=== PATIENT | male | born 1945 | race Caucasian/White ===

== ENCOUNTER 2016-08-11 19:16 | Emergency (ER) | payer MEDICARE, BC, OTHER ==
[2016-08-11] MEDS ORDERED: IOPAMIDOL 370 (76%) 100 ML VIAL IV ONE (19:17)
[2016-08-11] MEDS ORDERED: DIPHENHYDRAMINE HCL 50 MG/1 ML VIAL ONE (19:44)
[2016-08-11] MEDS ORDERED: METHYLPRED SOD SUCCINATE 125 MG VIAL ONE (19:44)
[2016-08-11] MEDS ORDERED: HYDROMORPHONE HCL 1 MG/ML SYRINGE ONE (19:44)
[2016-08-11] MEDS ORDERED: FAMOTIDINE 10 MG/ML 2ML VIAL ONE (19:45)
[2016-08-11 19:46] LABS: ABSOLUTE NEUTROPHIL COUNT 3.8 K/mm3 (1.8-7.7); BASO % 0.5 % (0.2-1.0); EOS # 0.1 (0.0-0.5); EOS % 0.9 % (0.9-2.9); HEMOGLOBIN 16.9 gm/l (14.0-18.0); IMM NEUT% 0.3 % (0-1); LYMPH # 1.9 (1.0-4.8); LYMPH % 28.6 % (15-45); MEAN CELL VOLUME 84.9 fl (80.0-94.0); MEAN CORPUSCULAR HEMOGLOBIN 29.3 pg (27.0-31.0); MEAN CORPUSCULAR HGB CONC 34.5 g/dl (33.0-37.0); MEAN PLATELET VOLUME 9.8 fl (7.4-10.4); MONO # 0.8 (0.0-0.8); MONO % 12.2 % (4-12); NEUT % 57.5 % (43-75); PLATELET COUNT 162 K/mm3 (130-400); RED CELL DISTRIBUTION WIDTH 12.5 % (11.5-14.5)
[2016-08-11 20:00] LABS: ALB/GLOB RATIO 1.6 (>1.0); ALBUMIN 4.3 gm/dL (3.5-5.7); CALCIUM 9.7 mg/dL (8.6-10.3)
[2016-08-11 20:25] LABS: INR 0.94; PROTHROMBIN TIME 9.9 SECONDS (9.3-11.4)
--- NOTE | 2016-08-11 21:10 | CT ---
INDICATION: ) Of chest pain. History of pulmonary embolus. COMPARISON: 11/04/2012 TECHNIQUE: Helical scan mode CT of the Thorax with 2 mm collimated images were obtained after uneventful intravenous contrast administration of 80 of Isovue-[id number]. Sagittal and coronal reformations with high resolution lung algorithm images were also created at this time. Maximal intensity projection images and 3-D volumetric sequences were created at a separate, dedicated workstation. DLP: 773.2 FINDINGS: There are no pulmonary arterial filling defects. By report patient has an iodine allergy, and patient was premedicated for this examination. Patient tolerated contrast injection without complication. Dependent and atelectatic changes are present. No pleural effusion. The central airways are widely patent. There is no axillary, mediastinal or hilar adenopathy. The heart and great vessels opacify normally. Limited evaluation of the abdomen demonstrates the gallbladder to be quite distended with some possible subtle fat stranding near the gallbladder neck. This is only seen on the last couple of images and is not fully assessed. If there is further clinical concern for biliary pathology, dedicated imaging would be recommended. Stable hypertrophic appearance to the right adrenal gland. Review of bone windows demonstrates no osteoblastic or lytic lesions. Multilevel degenerative changes. IMPRESSION: 1. Negative for pulmonary embolism. 2. Possible dilation of the gallbladder with some fat stranding near the neck only seen on the last few images. Dedicated imaging would be recommended if there is clinical concern for biliary pathology. 3. Other findings as above. Findings were called to Dr. Root at approximately 2104 hours on 08/11/2016.
--- NOTE | 2016-08-12 08:15 | US ---
ABDOMINAL-LIMITED History: Right-sided chest pain. Findings: Gallbladder: The gallbladder is mildly distended. There is questionable debris or sludge within the dependent portion of the gallbladder though no discrete gallstones are visualized. The gallbladder wall is borderline prominent with no pericholecystic fluid identified. A negative sonographic Cha sign was elicited during the course of the exam. Biliary tree: The common hepatic duct measures 4 millimeters adjacent to the hepatic artery. Liver: the visualized liver is homogeneous. No masses or evidence of intra-hepatic biliary dilatation are seen. Impression: 1. Questionable sludge versus artifact within the dependent gallbladder with borderline prominence of the gallbladder wall. However, no focal gallstones or biliary dilatation is observed with a reported negative sonographic Cha sign. The findings were called to the emergency room at 2213 hours, 08/11/2016, by [facility] radiology.
== END 2016-08-11 22:54 | disposition home or self-care (01) ==
LOC: ED 19:16
DX: R07.9 Chest pain, unspecified (principal); K80.20 Calculus of gallbladder without cholecystitis without obstruction; E11.9 Type 2 diabetes mellitus without complications; Z79.4 Long term (current) use of insulin; Z79.84 Long term (current) use of oral hypoglycemic drugs; Z87.891 Personal history of nicotine dependence
CPT/HCPCS: 83690; 85025; 80053; 85610; 84484; 71275; 76705; 96375 ×3; 99284 ×2; 96374; 93005; J1200; J1170; J2930; Q9967